=== PATIENT | female | born 1950 | race Caucasian/White ===

== ENCOUNTER 2021-05-05 16:56 | Emergency (ER) | payer OTHER ==
[2021-05-05 17:05] VITALS: BMI 24.1
[2021-05-05] MEDS ORDERED: BAMLANIVIMAB 700 MG, ETESEVIMAB 1,400 MG in SODIUM CHLORIDE 100 ML IVPB ONE (17:35)
[2021-05-05 21:11] VITALS: BP 101/78; PULSE 87
[2021-05-05 21:12] VITALS: TEMP 98.4
== END 2021-05-05 21:12 | disposition home or self-care (01) ==
LOC: JER 16:56 → JCOVINFU 16:56 → JER 21:12
DX: U07.1 COVID-19 (principal)
CPT/HCPCS: 99284-25; M0245; Q0245